=== PATIENT | male | born 1975 | race Caucasian/White ===

== ENCOUNTER 2016-10-22 02:10 | Emergency (ER) | payer SELFPAY ==
[2016-10-22 02:35] VITALS: RESP 16; TEMP 97.7; O2SAT 98
--- NOTE | 2016-10-22 02:52 | C.PDOC ---
History Of Present Illness 41 year old patient presents to the ED requesting detox from alcohol and heroin. Patient states he inject heroin, and last use of both heroin and alcohol was yesterday. He denies physical complaints. Time Seen by Provider: 10/22/16 02:41 Chief Complaint (Nursing): Substance Abuse History Per: Patient History/Exam Limitations: no limitations Current Symptoms Are (Timing): Still Present Suicide/Self Injury Attempted (Context): None Modifying Factor(s): Alcohol, Narcotics Past Medical History Reviewed: Historical Data, Nursing Documentation, Vital Signs Vital Signs: Last Vital Signs Temp 97.7 F 10/22/16 02:57 Pulse 88 10/22/16 02:57 Resp 16 10/22/16 02:57 BP 119/74 10/22/16 02:57 Pulse Ox 98 10/22/16 05:04 - Medical History PMH: Hepatitis (C) Family History: States: No Known Family Hx - Social History Hx Tobacco Use: Yes Hx Alcohol Use: Yes Hx Substance Use: Yes - Immunization History Hx Influenza Vaccination: No Hx Pneumococcal Vaccination: No Review Of Systems Except As Marked, All Systems Reviewed And Found Negative. Cardiovascular: Negative for: Chest Pain, Palpitations Respiratory: Negative for: Cough, Shortness of Breath Gastrointestinal: Negative for: Nausea, Vomiting, Abdominal Pain, Diarrhea Psych: Negative for: Suicidal ideation Physical Exam - Physical Exam Appears: Well, Non-toxic, No Acute Distress Skin: Warm, Dry, Other (multiple track murillo on arms and legs) Head: Normacephalic Eye(s): bilateral: Normal Inspection Neck: Supple Cardiovascular: Rhythm Regular Respiratory: Normal Breath Sounds, No Rales, No Rhonchi, No Wheezing Gastrointestinal/Abdominal: Normal Exam, Bowel Sounds, Soft, No Tenderness Extremity: Normal ROM Neurological/Psych: Oriented x3 ED Course And Treatment O2 Sat by Pulse Oximetry: 98 (RA) Pulse Ox Interpretation: Normal Progress Note: Discussed patient with crisis counselor, there are no detox beds currently available. Patient instructed to return to ER at later date to try for detox bed, or to call crisis for prescreening. Disposition Counseled Patient/Family Regarding: Diagnosis, Need For Followup - Disposition Referrals: [facility] [Outside] Disposition: HOME/ ROUTINE Disposition Time: 03:00 Condition: STABLE Additional Instructions: RETURN TO ER AT ANOTHER TIME TO TRY FOR DETOX BED Instructions: Narcotic Abuse (ED) Print Language: TELUGU - POA Present On Arrival: None - Clinical Impression Clinical Impression: Heroin dependence - Scribe Statement The provider has reviewed the documentation as recorded by the Scribe Myrna Pozo Provider Attestation: All medical record entries made by the Scribe were at my direction and personally dictated by me. I have reviewed the chart and agree that the record accurately reflects my personal performance of the history, physical exam, medical decision making, and the department course for this patient. I have also personally directed, reviewed, and agree with the discharge instructions and disposition.
[2016-10-22 02:58] VITALS: BP 119/74; PULSE 88
== END 2016-10-22 02:58 | disposition home or self-care (01) ==
LOC: C.ER 02:10
DX: F11.20 Opioid dependence, uncomplicated (principal)